=== PATIENT | male | born 1970 | race Caucasian/White ===

== ENCOUNTER 2018-08-23 20:41 | Emergency (ER) | payer MEDICAID ==
[~2018-08-23] VITALS: Ht 170.2 cm; Wt 86.2 kg
[2018-08-23] MEDS ORDERED: cloNIDine HCL 0.1 MG TAB PO ONE (21:15)
[2018-08-23 21:17] VITALS: BP 128/94
[2018-08-23] MEDS ORDERED: LABETALOL HCL 5 MG/ML ML 20ML VIAL IV ONE (21:45)
[2018-08-23 22:09] LABS: Basophils # (auto) 0.1 uL; Eosinophils # (auto) 0.1 uL; Lymphocytes # (auto) 2.1 uL; Neutrophils # (auto) 5.7 uL; White Blood Cell 8.9 10^3/uL (4.4-10.8)
[2018-08-23 22:10] LABS: Basophils % (auto) 0.9 % (0.0-2.0); Eosinophils % (auto) 1.4 % (0.0-7.0); Hematocrit 39.2 % (41.0-53.0); Lymphocytes % (auto) 23.2 % (10.0-50.0); Mean Corpuscular Hemoglobin 26.5 pg (28.0-32.0); Mean Corpuscular Hgb Conc. 33.1 g/dL (32.0-36.0); Mean Corpuscular Volume 80.1 fL (80.0-100.0); Monocytes # (auto) 0.9 uL; Monocytes % (auto) 10.1 % (0.0-12.0); Neutrophils % (auto) 64.4 % (37.0-80.0); Platelet Count (auto) 313 10^3/uL (140-450); Red Blood Cells 4.89 10^6/uL (4.5-5.90); Red Cell Distribution Width 17.3 % (11.8-14.3)
[2018-08-23] MEDS ORDERED: OXYCODONE W/ ACETAMINOPHEN 5/325MG TABLET PO ONE (22:15)
[2018-08-23 22:24] LABS: INR < 0.93 (0.9-1.15); Partial Thromboplastin Time 26.8 sec (23.64-32.05)
[2018-08-23 22:29] LABS: Albumin 3.3 g/dL (3.4-5.0); Calcium 8.6 mg/dL (8.5-10.1); Magnesium 2.3 mg/dL (1.6-2.6); Potassium 3.5 mmol/L (3.5-5.1)
[2018-08-23 22:36] LABS: BUN/Creatinine Ratio 20.6; Bilirubin, Total 0.3 mg/dL (0.2-1.0); Total Protein 6.6 g/dL (6.4-8.2)
== END 2018-08-23 22:28 | disposition left against medical advice (07) ==
LOC: ER 20:46
DX: K50.90 Crohn's disease, unspecified, without complications (principal); I10 Essential (primary) hypertension; R07.9 Chest pain, unspecified; Z88.8 Allergy status to other drugs, medicaments and biological substances; Z53.29 Procedure and treatment not carried out because of patient's decision for other reasons
CPT/HCPCS: 36415; 71046; 80053; 83735; 83880; 84484; 85025; 85610; 85730; 93005; 96374